=== PATIENT | female | born 1950 | race Caucasian/White ===

== ENCOUNTER → 2018-05-28 | Outpatient (CLI) | payer MEDICARE ==
[2018-05-28 16:24] LABS: Basophils % (A) 1 %; Eosinophils # (A) 0.2 k/uL (0-0.7); Eosinophils % (A) 3 %; HGB 13.8 gm/dL (11.4-16.0); Lymphocytes % (A) 31 %; MCH 29.7 pg (25.0-35.0); MCV 92.7 fL (80.0-100.0); Mean Platelet Volume 7.6; Monocytes # (A) 0.4 k/uL (0-1.0); Monocytes % (A) 7 %; Neutrophils # (A) 3.7 k/uL (1.3-7.7); Neutrophils % (A) 57 %; Platelet Count 206 k/uL (150-450); RBC 4.64 m/uL (3.80-5.40); WBC 6.5 k/uL (3.8-10.6)
[2018-05-28 18:58] LABS: Erythrocyte Sedimentation Rate 11 mm/hr (0-20)
== END | disposition home or self-care (01) ==
LOC: LABWHC1 14:49
PROVIDERS: ATTEND Physical Medicine & Rehabilitation
DX: S33.5XXA Sprain of ligaments of lumbar spine, initial encounter (principal); M99.04 Segmental and somatic dysfunction of sacral region; M54.16 Radiculopathy, lumbar region; M50.320 Other cervical disc degeneration, mid-cervical region, unspecified level; M47.812 Spondylosis without myelopathy or radiculopathy, cervical region; M43.12 Spondylolisthesis, cervical region
CPT/HCPCS: 36415; 85025; 85652; 86140

== ENCOUNTER → 2019-02-10 | Outpatient (CLI) | payer MEDICARE ==
--- NOTE | 2019-02-10 15:34 | BD ---
EXAMINATION TYPE: Axial Bone Density DATE OF EXAM: 02/10/2019 COMPARISON: 07.26.2012 CLINICAL HISTORY: 68 YR OLD FEMALE....ICD-10 CODE: M81.0 OSTEOPOROSIS Height: 56.5 Weight: 110 FRAX RISK QUESTIONS: Family History (Parent hip fracture): YES, WITH HUMERAL FX Secondary Osteoporosis: YES 3. Menopause before 45: YES AT AGE 34 RISK FACTORS HISTORY OF: Family History of Osteoporosis: YES, MOTHER YES HUMARAL FX Postmenopausal woman: YES TOTAL HYST AT AGE 34 Take estrogen and/or progesterone medications: IN PAST FOR 2 YRS NONE NOW Lost more than 2 inches in height since high school: YES Hyperparathyroidism: NO Adrenal Insufficiency: NO MEDICATIONS: Prednisone or other steroids: ONLY WITH ILLNESS, ON AND OFF FOR YRS Additional Medications: STATIN FOR CHOLESTEROL, CALCIUM AND MULTIVITAMIN, IRON TABLET, REFLUX MEDS, N SAIDS Additional History: ARTHRITIS, CHOLESTEROL, REFLUX AND LOW IRON EXAM MEASUREMENTS: Bone mineral densitometry was performed using the [employer] System. Bone mineral density as measured about the Lumbar spine is: ----- L1-L4(G/cm2): 1.251 T Score Values are as follows: ----- L1: -0.2 ----- L2: -0.4 ----- L3: 0.8 ----- L4: 1.5 ----- L1-L4: 0.6 Bone mineral density has: Increased 7.1% since study of: 07.26.2012 Bone mineral density about the R hip (g/cm2): 0.974 Bone mineral density about the L hip (g/cm2): 0.978 T Score values are as follows: -----R Neck: -1.3 -----L Neck: -1.1 -----R Total: -0.3 -----L Total: -0.2 Bone mineral density has: Decreased -4.8% since study of: 07.26.2012 FRAX%s: THERE IS A 14.9% CHANCE FOR A MAJOR OSTEOPOROTIC FX AND A 2.7% FOR HIP.....PROBABILITY FOR FX IN 10 YRS TIME IMPRESSION: Osteopenia (T Score between -2.5 and 1). There is slightly increased risk of fracture and patient may be considered for treatment. Re-Screen 2-5 years. NOTE: T-SCORE=SD OF THE YOUNG ADULT MEAN.
--- NOTE | 2019-02-13 10:36 | MM ---
Reason for exam: screening (asymptomatic). Last mammogram was performed 3 years and 11 months ago. History: Patient is postmenopausal. Benign stereotactic core biopsy of the left breast, December 16, 1999. Benign stereotactic core biopsy of the left breast, December 16, 1999. Took estrogen for 2 years. Took progesterone for 2 years. Physical Findings: A clinical breast exam by your physician is recommended on an annual basis and results should be correlated with mammographic findings. MG 3D Screening Mammo W/Cad Bilateral CC and MLO view(s) were taken. Prior study comparison: March 19, 2015, bilateral MG screening mammo w CAD. July 26, 2012, bilateral digital screening mammo w/CAD. The breast tissue is heterogeneously dense. This may lower the sensitivity of mammography. There are benign appearing round linear calcifications bilaterally. Previous mammotome biopsy in the left breast. There is no discrete abnormality. ASSESSMENT: Benign, BI-RAD 2 RECOMMENDATION: Routine screening mammogram of both breasts in 1 year.
== END | disposition home or self-care (01) ==
LOC: RADMAMWWP 14:01
PROVIDERS: ATTEND Internal Medicine Geriatric Medicine
DX: Z12.31 Encounter for screening mammogram for malignant neoplasm of breast (principal); M85.80 Other specified disorders of bone density and structure, unspecified site
CPT/HCPCS: 77063; 77067; 77080

== ENCOUNTER → 2022-02-09 | Outpatient (CLI) | payer MEDICARE ==
--- NOTE | 2022-02-09 16:02 | XR ---
EXAMINATION TYPE: XR chest 2V DATE OF EXAM: 02/09/2022 COMPARISON: None INDICATION: Cough and chest tightness TECHNIQUE: Frontal and lateral views of the chest are obtained. FINDINGS: The heart size is normal. The pulmonary vasculature is normal. The lungs are clear. IMPRESSION: 1. No acute pulmonary process.
== END | disposition home or self-care (01) ==
LOC: RADXRMAIN 15:47
PROVIDERS: ATTEND Nurse Practitioner Family
DX: R05.9 Cough, unspecified (principal)
CPT/HCPCS: 71046

== ENCOUNTER → 2022-10-17 | Outpatient (CLI) | payer MEDICARE ==
--- NOTE | 2022-10-18 08:28 | MM ---
Reason for Exam: Screening (asymptomatic). Last mammogram was performed 3 year(s) and 9 month(s) ago. Patient History: Menarche at age 10. First Full-Term at age 19. Left ovary removed at age 34. Hysterectomy at age 34. Postmenopausal. Estrogen for 2 years until age 49. Progesterone for 2 years until age 49. 12/16/1999, Benign Stereotactic Core Biopsy on the left side. 12/16/1999, Benign Stereotactic Core Biopsy on the left side. Risk Values: Ramonita 5 year model risk: 2.4%. NCI Lifetime model risk: 5.8%. Prior Study Comparison: 07/26/2012 Bilateral Screening Mammogram, [facility]. 03/19/2015 Bilateral Screening Mammogram, [facility]. 02/10/2019 Bilateral Screening Mammogram, [facility]. Tissue Density: The breast tissue is heterogeneously dense. This may lower the sensitivity of mammography. Findings: Analyzed By CAD. There is no suspicious group of microcalcifications or new suspicious mass in either breast. 2 biopsy clips within the left breast. Benign calcifications within both breasts. Chronic nodularity within the right breast. Overall Assessment: Benign, BI-RAD 2 Management: Screening Mammogram of both breasts in 1 year. A clinical breast exam by your physician is recommended on an annual basis and results should be correlated with mammographic findings. Note on Ramonita scores and lifetime risk: 1. A Ramonita score greater than 3% is considered moderate risk. If this is the case, consider specialist referral to assess eligibility for a risk reducing agent. If overall lifetime risk for the development of breast cancer is 20% or higher, the patient may qualify for future screening with alternating mammogram and breast MRI. Electronically signed and approved by: Son Montoya D.O.
== END | disposition home or self-care (01) ==
LOC: RADMAMWWP 09:50
PROVIDERS: ATTEND Internal Medicine Geriatric Medicine
DX: Z12.31 Encounter for screening mammogram for malignant neoplasm of breast (principal); Z78.0 Asymptomatic menopausal state
CPT/HCPCS: 77063; 77067

== ENCOUNTER → 2024-02-05 | Outpatient (CLI) | payer MEDICARE ==
--- NOTE | 2024-02-05 10:47 | BD ---
EXAMINATION TYPE: Axial Bone Density DATE OF EXAM: 02/05/2024 CLINICAL HISTORY: 73 years old Female. ICD-10 CODE: M89.9 DISORDER OF BONE , Additional History: Height: 56 Weight: 123 FRAX RISK QUESTIONS: Family History (Parent hip fracture): yes Secondary Osteoporosis: 3. Menopause before 45: yes RISK FACTORS HISTORY OF: MEDICATIONS: EXAM MEASUREMENTS: Bone mineral densitometry was performed using the [employer] System. Bone mineral density as measured about the Lumbar spine is: ----- L1-L4(G/cm2): 1.144 T Score Values are as follows: ----- L1: -0.3 ----- L2: -0.8 ----- L3: -0.6 ----- L4: 0.3 ----- L1-L4: -0.3 Z Score Values are as follows: ----- L1: 1.8 ----- L2: 1.2 ----- L3: 1.5 ----- L4: 2.4 ----- L1-L4: 1.8 Bone mineral density has: Decreased -8.6% since study of: 02-10-19 Bone mineral density about the R hip (g/cm2): 0.928 Bone mineral density about the L hip (g/cm2): 0.911 T Score values are as follows: -----R Neck: -1.6 -----L Neck: -1.6 -----R Total: -0.6 -----L Total: -0.8 Z Score values are as follows: -----R Neck: 0.5 -----L Neck: 0.5 -----R Total: 1.3 -----L Total: 1.2 Bone mineral density has: Decreased -5.8% since study of: 02-10-19 FRAX%s: The graph provided illustrates a 20.1% chance for a major osteoporotic fx and a 10.6% chance for the hips probability for fx in 10 years time. IMPRESSION: Osteopenia (T Score between -2.5 and -1). There is slightly increased risk of fracture and the patient may be considered for treatment. Re-Screen 2-5 years. NOTE: T-SCORE=SD OF THE YOUNG ADULT MEAN. [facility], , 02/05/2024 10:45 AM
== END | disposition home or self-care (01) ==
LOC: RADMAMWWP 07:52
PROVIDERS: ATTEND Internal Medicine Geriatric Medicine
DX: Z12.31 Encounter for screening mammogram for malignant neoplasm of breast (principal); M89.9 Disorder of bone, unspecified; M85.80 Other specified disorders of bone density and structure, unspecified site; Z78.0 Asymptomatic menopausal state
CPT/HCPCS: 77063; 77067; 77080